=== PATIENT | male | born 1950 | race African-American/Black ===

== ENCOUNTER 2021-09-16 05:41 | Emergency (ER) | payer MEDICARE, MEDICAID ==
[~2021-09-16] VITALS: Ht 182.9 cm; Wt 100.0 kg
[2021-09-16 06:24] LABS: BASOPHILS % 0.5 % (0.0-2.0); EOSINOPHILS % 0.8 % (0.0-5.0); HEMATOCRIT. 40.8 % (42.0-52.0); HEMOGLOBIN. 13.9 g/dL (14.0-18.0); LYMPHOCYTES % 9.1 % (20.0-50.0); MEAN CORPUSCULAR VOLUME 88.1 fL (80.0-94.0); MEAN PLATELET VOLUME 8.3 fl (7.4-10.4); MONOCYTES % 9.3 % (2.0-8.0); NEUTROPHILS % 80.3 % (40.0-76.0); PLATELET 236 x1000/uL (130-400); RED BLOOD CELL COUNT 4.63 mill/uL (4.7-6.1)
[2021-09-16 06:30] LABS: CHLORIDE 104 mEq/L (98-107)
[2021-09-16] MEDS ORDERED: ONDANSETRON HCL 4MG TABLET PO ONE (06:30)
[2021-09-16] MEDS ORDERED: OXYCODONE HCL/ACETAMINOPHEN 5/325MG TABLET PO ONE (06:30)
[2021-09-16] MEDS ORDERED: METR500T PO (07:27)
[2021-09-16] MEDS ORDERED: OXYC-100 PO (07:27)
[2021-09-16] MEDS ORDERED: CIPR-263 PO (07:27)
[2021-09-16 07:48] VITALS: BP 128/75
== END 2021-09-16 07:56 | disposition home or self-care (01) ==
LOC: ER 05:55
DX: K57.92 Diverticulitis of intestine, part unspecified, without perforation or abscess without bleeding (principal); E11.9 Type 2 diabetes mellitus without complications; I10 Essential (primary) hypertension
CPT/HCPCS: 36415; 74176; 80053; 82962; 83690; 85025; 93005; 99285; Q0162